=== PATIENT | male | born 1965 | race Caucasian/White ===

== ENCOUNTER 2017-09-12 06:44 | Inpatient (IN) | payer OTHER ==
[~2017-09-12] VITALS: Ht 185.4 cm; Wt 77.4 kg
[~2017-09-12 06:44] MED LIST: ALPR.25 PO; IBUP1TAB7 PO
[2017-09-12] MEDS ORDERED: ceFAZolin 2 GM PREMIX 50 ML IV SCH (07:15)
[2017-09-12] MEDS ORDERED: LACTATED RINGER'S 1000 ML IV PRN (07:15)
[2017-09-12] MEDS ORDERED: DEXAMETHASONE SOD PHOS 20 MG/5 ML VIAL IV PUSH ONE (07:15)
[2017-09-12] MEDS ORDERED: SODIUM CHLORID 0.9% 500 ML IV PRN (07:15)
[2017-09-12] MEDS ORDERED: POVIDONE IODINE 7.5% SCRUB 118 ML BOTTLE TOPICAL SCH (07:15)
[2017-09-12] MEDS ORDERED: CHLORHEXIDINE GLUCONATE 4% SOLN 120 ML BTL TOPICAL SCH (07:15)
[2017-09-12] MEDS ORDERED: POVIDONE IODINE 5% (ANTISEPSIS KIT) 4 APPLICATIONS EACH NARE PRN (07:15)
[2017-09-12] MEDS ORDERED: CHLORHEXIDINE GLUCONATE 2 % 1 PACK (2 CLOTHS) TOPICAL PRN (07:15)
[2017-09-12] MEDS ORDERED: METOPROLOL TARTRATE 25 MG TAB PO PRN (07:15)
[2017-09-12] MEDS ORDERED: VANCOMYCIN 1 GM/200 ML PREMIX IV SCH (07:30)
[2017-09-12] MEDS ORDERED: HYDR-3288 PO (08:22)
[2017-09-12] MEDS ORDERED: ASPI81CH6 CHEW (08:22)
[2017-09-12] MEDS ORDERED: ACETAMINOPHEN/HYDROcodone 325 MG/10 MG TAB PO PRN (08:30)
[2017-09-12] MEDS ORDERED: diphenhydrAMINE HCL 50 MG/ML VIAL IV PUSH PRN (08:30)
[2017-09-12] MEDS ORDERED: Post-op Orders (for Pharmacy) XX ONE (08:30)
[2017-09-12] MEDS ORDERED: ONDANSETRON ODT 4 MG TAB PO PRN (08:30)
[2017-09-12] MEDS ORDERED: ACETAMINOPHEN 1000 MG/100 ML 100 ML IV ONE (08:45)
[2017-09-12] MEDS ORDERED: GENTAMICIN SULFATE 80 MG/2 ML VIAL ONE (09:32)
[2017-09-12] MEDS ORDERED: EXPAREL PERI-ARTICULAR INJECTION (TOTAL VOL. 60 ML) P-ARTICULR SCH ×2 (10:00)
[2017-09-12] MEDS ORDERED: TRANEXAMIC PERI-ARTICULAR 3,000 MG/NS 100 ML P-ARTICULR SCH ×2 (10:00)
[2017-09-12] MEDS ORDERED: TRANEXAMIC ACID INJ 1,161 MG in SODIUM CHLORIDE 0.9% INJ 100 ML IV SCH (10:00)
[2017-09-12] MEDS ORDERED: DO NOT ADM ANY ANTICOAGULANT DRUGS PRN (11:45)
[2017-09-12] MEDS ORDERED: *MEPERIDINE 25 MG INJ VIAL PERIprocedural Use ONLY ONE (11:50)
[2017-09-12] MEDS ORDERED: KETAMINE HCL 500 MG/10 ML VIAL ONE (11:52)
[2017-09-12] MEDS ORDERED: MIDAZOLAM HCL 2 MG/2 ML VIAL ONE (11:52)
--- NOTE | 2017-09-12 11:54 | MP ---
cc: Michele Kim MD DATE OF OPERATION: 09/12/2017 PREOPERATIVE DIAGNOSIS: Right hip osteoarthritis, right hip osteonecrosis. POSTOPERATIVE DIAGNOSIS: Right hip osteoarthritis, right hip osteonecrosis. PROCEDURE: Right total hip arthroplasty. SURGEON: Michele Kim MD CLIENT APPLICATION SUPPORT SPECIALIST: MARCUS Turner. ANESTHESIA: General. ESTIMATED BLOOD LOSS: 200 mL. COMPLICATIONS: None. IMPLANTS USED: DePuy Corail size 16 press-fit high offset femoral stem, size 58 solid [place] Gription cup, size 36 mm highly cross-linked neutral polyethylene liner, size 36 mm ceramic head, +5 neck. JUSTIFICATION: This patient is a 52-year-old male with a history of severe right hip pain with progression of symptoms and interference with activities of daily living. He has constant pain with standing, walking, ambulation and weightbearing activities. He has failed greater than 3 months of nonoperative conservative treatment to include medication therapy, injections, ambulatory assistive aids, home exercise program, activity modification. The patient is not overweight. X-ray of the right hip reveal evidence of osteonecrosis with collapse of the femoral head. There is also significant osteoarthritic change of the hip with joint space narrowing, subchondral sclerosis, subchondral cyst, osteophyte formation with subluxation. The patient was counseled as to the risks, benefits, and alternatives to a total hip arthroplasty. The risks were discussed, which include, but are not limited to anesthesia, bleeding, infection, damage to nerves and blood vessels, pain, stiffness, fracture, dislocation, leg length discrepancy, blood clots, pulmonary embolism, and even . The patient's pain is severe. He favored the benefits over the risks, he did wish to proceed with surgery. PROCEDURE IN DETAIL: Written consent was obtained. The patient identified by name, taken to the operating room, placed supine on the operating room table. General anesthesia was administered, as well as 2 grams of IV Ancef and 1 gram of IV vancomycin. The right and left feet were placed in the padded traction boots. The right hip and right lower extremity prepped and draped using isopropyl alcohol, Hibiclens solution and ChloraPrep solution. After a timeout was performed, a longitudinal incision made over the anterolateral aspect of the right hip. The fascial layer was incised. Dissection was carried over the tensor fascia rod and beneath the rectus femoris to allow exposure of the anterior hip capsule. A capsulotomy incision was performed. An oscillating saw was used to perform a femoral neck cut. The osteoarthritic femoral head and neck component was removed. A 10 blade scalpel was used to excise the labrum. Sequential reaming began at size 48 and was carried through to size 58. Subsequently, a solid [place] Gription cup was implanted in approximately 45 degrees of abduction, 10 degrees of anteversion. The size 58 cup had excellent purchase and fixation. A screw hole eliminator was placed, followed by the neutral liner. The liner was impacted in placed and tested for stability. At this point, attention was turned to the femur where the leg was externally rotated, extended and adducted. A box cutting osteotome was used to gain entrance into the intramedullary canal of femur. This was followed by canal finder and lateralizing reamer. Sequential broaching up to size 16 was followed by calcar planer. Trial head and neck combinations were evaluated and final components implanted with the current components. The leg could achieve external rotation to 70 degrees and extension all the way down to the ground without evidence of anterior instability or impingement. Fluoroscopic imaging showed appropriate implantation of components. Soft tissue tension felt appropriate. The surgical wound was thoroughly irrigated with a sterile saline pulse lavage antibiotic impregnated solution. The fascial layer was closed with #1 Vicryl suture. Subcuticular layer 2-0 Vicryl suture. Skin was closed with Dermabond. Sterile dressing applied. The patient tolerated the procedure well. No intraoperative complications noted. Paul Peters PA-C was present during the entire procedure to include patient positioning and the procedure itself. The medical necessity of a physician assistant scientist was indicated in this case due to the complexity of the procedure. He assisted with appropriate manipulation of the leg and also retraction of muscle, tendon, bone and neurovascular structures. He assisted with preparation of bone and also implantation of the prosthetic replacement. Michele Kim MD JWM/MANDY , 11:21 AM , 11:53 AM
[2017-09-12] MEDS ORDERED: *morphine SULFATE 8 MG/ML PERIprocedure ONLY ONE ×3 (11:55→12:39)
[2017-09-12] MEDS ORDERED: PROPOFOL 200 MG/20 ML AMP IV ONE (12:00)
[2017-09-12] MEDS ORDERED: GLYCOPYRROLATE 1 MG/5 ML SYRINGE IV PUSH ONE (12:00)
[2017-09-12] MEDS ORDERED: PHENYLEPH/NS 1000 MCG/10 ML SYR IV ONE (12:00)
[2017-09-12] MEDS ORDERED: NEOSTIGMINE 5 MG/5 ML SYRINGE IV PUSH ONE (12:00)
[2017-09-12] MEDS ORDERED: LIDOCAINE HCL 1% PF 5 ML SYRINGE OTHER ONE (12:00)
[2017-09-12] MEDS ORDERED: ePHEDrine/NS 25 MG/5 ML SYRINGE IV ONE (12:00)
[2017-09-12] MEDS ORDERED: ONDANSETRON HCL 4 MG/2 ML VIAL IV PUSH ONE (12:00)
[2017-09-12] MEDS ORDERED: ROCURONIUM INJ 50 MG/5 ML SYRINGE IV PUSH ONE (12:00)
--- NOTE | 2017-09-12 12:11 | RADRPT ---
EXAM DATE: 09/12/2017 12:05 PM EDT AGE/SEX: 52 years / Male INDICATIONS: Right total hip replacement. CLINICAL DATA: This is the patient's initial encounter. Patient reports that signs and symptoms have been present for 1 day and indicates a pain score of Nonresponsive. MEDICAL/SURGICAL HISTORY: Non-responsive. Non-responsive. COMPARISON: No prior exams available for comparison. FINDINGS: 2 views from the OR have been submitted. There is a bipolar hip prosthesis in place. This appears wel l-positioned. Air seen within the soft tissues. CONCLUSION: Successful placement of a bipolar hip prosthesis. Electronically signed by: Ector Elizabeth MD 09/12/2017 12:10 PM EDT
[2017-09-12] MEDS: SODIUM CHLOR 0.9% 1000 ML INJ 1,000 ML IV SCH ×2 (12:15→22:00)
--- NOTE | 2017-09-12 12:42 | RADRPT ---
EXAM DATE: 09/12/2017 12:32 PM EDT AGE/SEX: 52 years / Male INDICATIONS: Post op right total hip. CLINICAL DATA: This is the patient's subsequent encounter. Patient reports that signs and symptoms h ave been present for 1 day and indicates a pain score of 10/10. MEDICAL/SURGICAL HISTORY: . Unobtainable. . Left total hip. COMPARISON: No prior exams available for comparison. FINDINGS: The patient is post bilateral hip arthroplasties. The orthopedic hardware is in excellent position. A lignment is good. No acute fracture is seen. CONCLUSION: There are bilateral arthroplasties. One on the right is new. Alignment of the hardware is good. Electronically signed by: Checo Conner MD 09/12/2017 12:41 PM EDT
--- NOTE | 2017-09-12 13:18 | RADRPT ---
EXAM DATE: 09/12/2017 1:15 PM EDT AGE/SEX: 52 years / Male INDICATIONS: Post op right total hip arthroplasty. CLINICAL DATA: This is the patient's subsequent encounter. Patient reports that signs and symptoms h ave been present for 1 day and indicates a pain score of 10/10. MEDICAL/SURGICAL HISTORY: . Unobtainable. . Left total hip arthroplasty. COMPARISON: No prior exams available for comparison. FINDINGS: Limited crosstable lateral examination of the patient's right hip arthroplasty was performed. The ort hopedic hardware appears well situated. There is no evidence of complication. CONCLUSION: Orthopedic hardware in satisfactory position. Electronically signed by: Checo Conner MD 09/12/2017 1:17 PM EDT
[2017-09-12] MEDS: MORPHINE SULFATE 4 MG/ML INJ IV PUSH PRN ×3 (15:03→22:01)
[2017-09-12 16:00] VITALS: BP 159/83; PULSE 69; RESP 16; TEMP 98.4; O2SAT 95
[2017-09-12] MEDS: ceFAZolin 2 GM PREMIX 50 ML IV SCH ×2 (16:15→22:01)
[2017-09-12] MEDS: ACETAMINOPHEN/HYDROcodone 325 MG/10 MG TAB PO PRN (19:42)
[2017-09-12 19:55] VITALS: BP 166/89; PULSE 84; RESP 17; TEMP 98; O2SAT 96
[2017-09-13 00:20] VITALS: BP 142/70; PULSE 77; RESP 16; TEMP 97.8; O2SAT 93
[2017-09-13] MEDS: MORPHINE SULFATE 4 MG/ML INJ IV PUSH PRN ×2 (01:04→06:45)
[2017-09-13] MEDS: ceFAZolin 2 GM PREMIX 50 ML IV SCH (02:42)
[2017-09-13] MEDS: ACETAMINOPHEN/HYDROcodone 325 MG/10 MG TAB PO PRN ×3 (02:42→11:48)
[2017-09-13] MEDS ORDERED: KETOROLAC TROMETHAMINE 30 MG/ML (IVP) VIAL IV PUSH ONE (03:30)
[2017-09-13 04:30] VITALS: BP 140/78; PULSE 74; RESP 17; TEMP 98.1; O2SAT 93
[2017-09-13 06:58] LABS: HEMATOCRIT 31.7 % (39.0-51.0); HEMOGLOBIN 10.8 GM/DL (13.0-17.0); MEAN CELL VOLUME 90.3 FL (80.0-100.0); MEAN CORPUSCULAR HEMOGLOBIN 30.7 PG (27.0-34.0); MEAN PLATELET VOLUME 7.3 FL (7.0-11.0); PLATELET COUNT 324 TH/MM3 (150-450); RED BLOOD COUNT 3.51 MIL/MM3 (4.50-5.90); RED CELL DISTRIBUTION WIDTH 12.2 % (11.6-17.2); WHITE BLOOD COUNT 7.8 TH/MM3 (4.0-11.0)
[2017-09-13 07:23] LABS: CALCIUM 8.1 MG/DL (8.5-10.1); CREATININE 0.82 MG/DL (0.60-1.30)
[2017-09-13 08:00] VITALS: BP 133/68; PULSE 72; RESP 16; TEMP 98.5; O2SAT 97
[2017-09-13] MEDS: SODIUM CHLOR 0.9% 1000 ML INJ 1,000 ML IV SCH (08:00)
--- NOTE | 2017-09-13 09:09 | PD.ORT.PN ---
Subjective Post Op Day #: 1 Subjective Remarks hip sore and tight Objective Vitals Vital Signs Date Time Temp Pulse Resp B/P (MAP) Pulse Ox O2 Delivery O2 Flow Rate FiO2 09/13/17 04:30 98.1 74 17 140/78 (98) 93 09/13/17 00:20 97.8 77 16 142/70 (94) 93 09/12/17 19:55 98.0 84 17 166/89 (114) 96 09/12/17 16:00 68 16 123/79 (94) 96 Room Air 09/12/17 16:00 98.4 69 16 159/83 (108) 95 09/12/17 15:00 70 16 126/76 (93) 96 Room Air 09/12/17 14:00 74 16 125/76 (92) 96 Room Air 09/12/17 13:30 76 16 127/74 (91) 98 09/12/17 13:00 76 16 157/77 (103) 98 Nasal Cannula 2 09/12/17 12:45 78 16 154/89 (110) 98 Nasal Cannula 2 09/12/17 12:30 74 16 160/86 (110) 97 Nasal Cannula 2 09/12/17 12:15 76 16 139/92 (108) 95 Nasal Cannula 2 09/12/17 12:00 82 16 143/74 (97) 95 Nasal Cannula 2 09/12/17 11:45 97.5 88 16 146/83 (104) 95 Nasal Cannula 2 I/O 09/12/17 09/12/17 09/12/17 09/13/17 09/13/17 09/13/17 07:00 15:00 23:00 07:00 15:00 23:00 Intake Total 2750 ml 720 ml Output Total 400 ml 1000 ml Balance 2350 ml -1000 ml 720 ml Intake Oral 720 ml IV Total 50 ml Other 2700 ml Output Urine Total 1000 ml Estimated Blood Loss 400 ml # Bowel Movements 0 Result Diagram: 09/13/1761809/13/17618 Objective Remarks in bed, nad dressing c/d/i thigh soft neg homans nvi Assessment & Plan Ortho Post Op Day #: 1 Problem List: Assessment and Plan s/p R ISAAC wbat ok to maintain dressing unless saturated lovenox, d/c on [id number] PT d/c planning home with [facility] and pt - cleared today if does well in PT f/up dr. [email or web address] 2 weeks Michele Peters Sep 13, 2017 09:09
--- NOTE | 2017-09-13 09:11 | HHI.DCPOC ---
Discharge Care Plan Diagnosis: (1) Primary localized osteoarthrosis, pelvic region and thigh Your Health Problems Are: Difficulty with ADL Goals to Promote Your Health * To prevent worsening of your condition and complications * To maintain your health at the optimal level Directions to Meet Your Goals Take your medications as prescribed Follow your dietary instruction Follow activity as directed Keep your appointments as scheduled Take your immunizations and boosters as scheduled If your symptoms worsen call your PCP, if no PCP go to Urgent Care Center or Emergency Room Smoking is Dangerous to Your Health. Avoid second hand smoke Call the 24-hour hour crisis hotline for domestic abuse at Michele Peters Sep 13, 2017 09:11
--- NOTE | 2017-09-13 09:12 | HHI.FF ---
Face to Face Verification Diagnosis: (1) Primary localized osteoarthrosis, pelvic region and thigh Physical Therapy Gait training, Safety evaluation, Transfer training, bed to chair Hip: Total hip, Protocol: Right Right LE Weight Bearing: WB as tolerated Nursing RN: 3 days/week x 2 weeks Nursing: Dressing changes I have seen patient Jonathan López on 09/13/17. My clinical findings support the need for the requested home health care services because: Limited ability to care for self High risk of falls I certify that my clinical findings support that this patient is homebound because: Post-op weakness Unsteady gait/balance Michele Peters Sep 13, 2017 09:12
[2017-09-13] MEDS ORDERED: ENOXAPARIN SODIUM 40 MG/0.4 ML SYRINGE SQ SCH (11:00)
[2017-09-13] MEDS ORDERED: DOCUSATE SODIUM 100 MG CAP PO SCH (21:00)
[2017-09-13] MEDS ORDERED: MULTIVITAMINS/MINERALS THERAPEUTIC TAB PO SCH (21:00)
== END 2017-09-13 14:32 | disposition home health service (06) | DRG 470 ==
LOC: HSDI 06:44 → N06B 16:37
PROVIDERS: ADMIT Orthopaedic Surgery Sports Medicine; ATTEND Orthopaedic Surgery Sports Medicine
PROC: 0SR904A Replacement of Right Hip Joint with Ceramic on Polyethylene Synthetic Substitute, Uncemented, Open Approach (ICD-10-PCS; principal; 2017-09-12 09:27)
DX: M16.11 Unilateral primary osteoarthritis, right hip (principal); M87.9 Osteonecrosis, unspecified; Z96.642 Presence of left artificial hip joint; Z87.891 Personal history of nicotine dependence
CPT/HCPCS: 73501; 73502; 76000; 80048; 85027; 86850; 86900; 86901; 94150; C1776; C9290; J0131; J0690; J1100; J1580; J1650; J1885; J2175; J2250; J2270; J2370; J2405; J2710; J3010; J3370; J7030; J7120